=== PATIENT | female | born 1950 | race Hispanic/Latino ===

== ENCOUNTER 2020-07-26 12:17 | Emergency (ER) | payer MEDICARE ==
[~2020-07-26] VITALS: Ht 160 cm; Wt 92.1 kg
[~2020-07-26 12:17] MED LIST: GLEEVEC100 MG PO; TYLENOL WITH C1 EACH PO; UNK BP MED; [UNRECOGNIZED DRUG - CODE] PO
[2020-07-26 12:51] LABS: BASOPHILS % 0.4 % (0.0-1.0); EOSINOPHILS # (AUTO) 0.1 (0.0-0.4); EOSINOPHILS % 1.8 % (0.0-6.0); HEMOGLOBIN 13.3 g/dL (12.0-16.0); LYMPHOCYTES # (AUTO) 3.1 (1.0-3.2); LYMPHOCYTES % 46.3 % (18.0-39.1); MEAN CORPUSCULAR HEMOGLOBIN 30.6 pg (28-32); MEAN CORPUSCULAR HGB CONC 33.3 g/dL (31-35); MEAN CORPUSCULAR VOLUME 92.2 fL (81-99); MONOCYTES # (AUTO) 0.5 (0.2-0.8); MONOCYTES % 7.2 % (4.4-11.3); NEUTROPHILS % 44.2 % (38.7-80.0); PLATELET COUNT 150 x10e3/uL (140-360); RED BLOOD COUNT 4.34 x10e6/uL (3.6-5.1); RED CELL DISTRIBUTION WIDTH 13.2 % (11.7-14.4)
[2020-07-26 12:55] LABS: INR 0.97; PROTHROMBIN TIME 13.4 seconds (11.9-14.5)
[2020-07-26 13:05] LABS: ALANINE AMINOTRANSFERASE 15 IU/L (0-55); ALBUMIN 3.7 g/dL (3.5-5.0); ALBUMIN/GLOBULIN RATIO 1.1 (0.8-2.0); ALKALINE PHOSPHATASE 118 IU/L (40-150); ANION GAP 16.9 mmol/L (8-16); BLOOD UREA NITROGEN 13 mg/dL (7-26); BUN/CREATININE RATIO 15 (6-25); CALCIUM 8.6 mg/dL (8.4-10.2); CARBON DIOXIDE 18 mmol/L (22-29); CHLORIDE 105 mmol/L (98-107); CREATINE KINASE 67 IU/L (29-168); CREATININE, SERUM 0.89 mg/dL (0.57-1.11); EST GLOMERULAR FILTRATION RATE > 60 ML/MIN (60-); GLUCOSE 269 mg/dL (74-118); POTASSIUM 3.9 mmol/L (3.5-5.1); SODIUM 136 mmol/L (136-145)
--- NOTE | 2020-07-26 13:14 | Diagnostic Imaging Report ---
EXAMINATION: CHEST SINGLE (PORTABLE) INDICATION: Shoulder pain COMPARISON: None FINDINGS: LINES/TUBES:None LUNGS:The lungs are moderately inflated. No focal consolidation or pulmonary edema. PLEURA:No pleural effusion or pneumothorax. MEDIASTINUM:The cardiomediastinal silhouette appears normal in size and shape. BONES/SOFT TISSUES:No acute osseous injury. ABDOMEN:No free air under the diaphragm. IMPRESSION: No focal pneumonia or pulmonary edema. Signed by: Mckenna John MD on 07/26/2020 1:11 PM
--- OUTSIDE RECORDS SUMMARY | 2020-07-26 13:18 | XMS REPORT | Continuity of Care Document ---
Author Author [facility] Organization [facility] Address [address] [place] [address] Phone Unavailable Care Team Providers Care Investment Representative Name Role Phone Kali MUÑOZ PCP Unavailable Adrian LUNDY Attphys Unavailable LYNNETTE LOVE Attphys Unavailable Aniya HELTON Attphys Unavailable Adrian LUNDY Admphys Unavailable Payers Payer Name Policy Type Policy Number Effective Date Expiration Date Laya salgado MEDICARE PART A AND B [id number] 2009 00:00:00 MEDICAID [place] TRADITIONAL STAR NON SSI [id number] 2019 00:00:00 Problems This patient has no known problems. Allergies, Adverse Reactions, Alerts Allergy Name Allergy Type Status Severity Reaction(s) Onset Date Inacti ve Date Treating Clinician Comments Source ibuprofen DA Active U 2019-06-24 00:00:00 [facility] Diphenhydramine Hcl Propensity to adverse reactions Active 2018-06-02 00:00:00 [facility] Ibuprofen Propensity to adverse reactions Active 06-02 00:00:00 [facility] races [facility] Codeine Propensity to adverse reactions Active 2018-05-29 0 0:00:00 [facility] Penicillins Propensity to adverse reactions Active 2017 00:00:00 [facility] Penicillins DA Active [place] 2012-07-03 00:00:00 [facility] codeine DA Active [place] 2012-07-03 00:00:00 [facility] Social History Social Habit Start Date Stop Date Quantity Comments Source Sex Assigned At [facility] Smoking Status Start Date Stop Date Source Never smoker [facility] Medications Ordered Medication Name Filled Medication Name Start Date Stop Da te Current Medication? Ordering Clinician Indication Dosage Frequency Signature (SIG) Comments Components Source bacitracin-polymyxin b (POLYSPORIN) 500-10,000 unit/gram oph thalmic ointment 2018-06-02 10:03:20 Yes every 12 (twelve) hours. [facility] Missing or Non-Formulary Medication 2018-06-02 10:03:20 Yes durezol eye drops . [facility] DULoxetine (CYMBALTA) 60 MG capsule 2018-06-02 10:03:19 Yes 60mg QD Take 60 mg by mouth daily. [facility] sulfamethoxazole-trimethoprim (BACTRIM DS) 800-160 mg per ta blet 2018-06-02 10:03:19 Yes 1{tbl} Q.5D Take 1 tablet by mouth 2 (two ) times daily. [facility] atorvastatin (LIPITOR) 20 MG tablet 2018-06-02 10:03:19 Yes 20mg QD Take 20 mg by mouth daily. [facility] Missing or Non-Formulary Medication 2018-06-02 10:03:19 Yes prolensa eye drops . [facility] Missing or Non-Formulary Medication 2018-06-02 09:57:22 Yes Unknown name of med used to prevent infection after stem cell transplant . [facility] Vital Signs Vital Name Observation Time Observation Value Comments Source WEIGHT 2020-05-27 14:45:00 98.7 kg Procedures This patient has no known procedures. Encounters Start Date/Time End Date/Time Encounter Type Admission Type Attendi [facility] Facility Care Department Encounter ID Source 2020-05-27 15:40:06 Outpatient MALLORY LUNDY MDA [id number] [facility] 2020-08-19 00:00:00 2020-08-19 00:00:00 Outpatient JAVIER LUNDY MDA, MDA [id number] [facility] 2020-08-02 00:00:00 2020-08-02 00:00:00 Outpatient ABDI NICHOLS MDA MDA [id number] [facility] 2020-08-02 00:00:00 2020-08-02 00:00:00 Outpatient JAVIER JENNINGS MDA MDA [id number] [facility] 2020-08-02 00:00:00 2020-08-02 00:00:00 Outpatient ABDI NICHOLS [place] MDA [id number] [place] [facility] 2020-08-02 00:00:00 2020-08-02 00:00:00 Outpatient ABDI NICHOLS MDA MDA [id number] [place] [facility] 2020-08-02 00:00:00 2020-08-02 00:00:00 Outpatient ABDI NICHOLS MDA MDA [id number] [place] [facility] 2020-07-19 00:00:00 2020-07-19 00:00:00 Outpatient ABDI NICHOLS MDA MDA [id number] [facility] 2020-05-27 16:20:55 2020-05-27 23:59:00 Outpatient JAVIER JENNINGS MDA MDA [id number] [facility] 2020-05-27 16:10:00 2020-05-27 16:19:00 Outpatient ABDI NICHOLS MDA MDA [id number] [facility] 2020-05-27 13:24:41 2020-05-27 16:09:00 Outpatient ABDI NICHOLS MDA MDA [id number] [place] [facility] 2020-05-27 14:39:23 2020-05-27 15:56:45 Outpatient EARLINE JENNINGSNCStanislav Jason MDA MDA [id number] [facility] Results Test Description Test Time Test Comments Results Result Comments Source CHEST SINGLE (PORTABLE) 2020-07-26 13:00:00 [place] [address] Patient Name: WENDY BARRY MR #: [id number] : 1950 Age/Sex: 69/F Req #: [id number] Adm Physician: Ordered by: STEVE HELTON MD Report #: [id number] Location: ER Room/Bed: Procedure: [id number] DX/CHEST SINGLE (PORTABLE) Exam Date: 07/26/20 Exam Time: 1240 REPORT STATUS: Signed EXAMINATION: CHEST SINGLE (PORTABLE) INDICATION: Shoulder pain COMPARISON: None FINDINGS: LINES/TUBES:None LUNGS:The lungs are moderately inflated. No focal consolidation or pulmonary edema. PLEURA:No pleural effusion or pn eumothorax. MEDIASTINUM:The cardiomediastinal silhouette appears normal in size and shape. BONES/SOFT TISSUES:No acute osseous injury. ABDOMEN:No free air under the diaphragm. IMPRESSION: No focal pneumonia or pulmonary edema. Signed by: Noah Edwards MD on 07/26/2020 1:11 PM Dictated By: NOAH EDWARDS MD 1311 Transcribed By: KAELYN on 07/26/20 1311 COPY TO: STEVE HELTON MD - CT ABD PELVIS W/O CONT 2019-06-24 13:14:00 N andrew: WENDY BARRY [facility] : 1950 Age/S: 68 / F [address] [facility] Unit #: [id number] Loc: [place] [address] Phys: Amos Lee MD Acct: [id number] Dis Date: Status: REG ER PHONE #: [phone] Exam Date: 06/24/2019 1205 FAX #: [phone] Reason: diffuse abdominal pain EXAMS: CPT CODE: [id number] CT ABD PELVIS W/O CONT 52774 REASON FOR EXAM: diffuse abdominal pain EXAM ORDER DATE: 06/24/2019 11:46 AM Ordering M.D.: Amos Lee MD PROCEDURE: - CT ABD PELVIS W/O CONT noncontrast axial CT images were acquired through the abdomen/pelvis at 5 mm intervals. Sagittal and coronal reformatted images were generated. Automated exposure control was utilized for this reduction. Phases of contrast: None COMPARISON: None FINDINGS: The absence of IV contrast limits sensitivity of this exam for the detection of soft tissue pathology Visualized thorax: Coronary atherosclerosis is present. Lung bases are clear. Hepatobiliary system: Decreased attenuation of the hepatic parenchyma suggest steatosis. There is focal sparing adjacent to the gallbladder fossa. Gallbladder is within normal limits. Pancreas: Normal Spleen: Normal Adrenal glands: Normal Genitourinary system: Prior hysterectomy. There is a 2 mm hyperdensity in the lower pole of the right kidney which may represent a renal stone. No hydronephrosis or hydroureter. Bladder is within normal limits. Left kidney is within normal limits. Gastrointestinal tract and appendix: There is diverticular disease in the sigmoid colon but no evidence of diverticulitis. Appendix is not clearly visualized and may be absent. No inflammatory changes in the right lower quadrant of the abdomen. Otherwise normal. Abdominal vascular structures: Scattered calcified atherosclerotic plaques in the aorta and iliac arteries and mesenteric branches. PAGE 1 Signed Report (CONTINUED) Name: WENDY BARRY [facility] : 1950 Age/S: 68 / F [address] [facility] Unit #: [id number] Loc: [place] [address] Phys: Amos Lee MD Acct: [id number] Dis Date: Status: REG ER PHONE #: [phone] Exam Date: 06/24/2019 1205 FAX #: [phone] Reason: diffuse abdominal pain EXAMS: CPT CODE: [id number] CT ABD PELVIS W/O CONT 22571 <Continued> Peritoneum and retroperitoneum: No free fluid or free air. No omental or mesenteric masses. No abnormal lymph nodes. Musculoskeletal structures and abdominal wall: Degenerative changes are present in the thoracic spine. There is also grade 1 L4-L5 anterolisthesis. IMPRESSION: No acute intra-abdominal process to explain the patient's reported history of diffuse abdominal pain. Punctate hyperdensity in the right kidney may represent a nonobstructing stone. No evidence of perinephric fat stranding to suggest inflammation. Colonic diverticulosis without evidence of diverticulitis. Hepatic steatosis. at 1314 Reported and signed by: Ang Ma MD CC: Amos Lee MD Technologist:ALEKSANDAR GARVIN, RT(R),CT CTDI: DLP: Trnscb Date/Time: 06/24/2019 (3136) [id number] Orig Print D/T: S: 06/24/2019 (5105) PAGE 2 Signed Report TROPONIN-I 2019-06-24 11:52:00 Test Item TROPONIN-I (test code = TROPI) <0.015 ng/mL 0.00-0.056 N BASIC METABOLIC [id number] 11:46:00* Test Item Value Reference Range Interpretation Comments SODIUM (test code = NA) 139 mmol/L 136-145 N POTASSIUM (test code = K) 3.8 mmol/L 3.5-5.1 N CHLORIDE (test code = CL) 102 mmol/L 101-109 N CARBON DIOXIDE (test code = CO2) 25.5 mmol/L 21-32 N ANION GAP (test code = GAP) 15 mmol/L 10-20 N GLUCOSE (test code = GLU) 156 mg/dL 74-106 H BLOOD UREA NITROGEN (test code = BUN) 19 mg/dL 3-21 N GLOMERULAR FILTRATION RATE (test code = GFR) 42 mL/min >=60 Estimated GFR by using Modified MDRD formula.Chronic kidney disease is defined as either kidney damageor GFR <60 mL/min/1.73 m2 for >3 months. CREATININE (test code = CREAT) 1.27 mg/dL 0.55-1.3 N BUN/CREATININE RATIO (test code = BUN/CREA) 15.0 10-20 N CALCIUM (test code = CA) 9.6 mg/dL 8.4-10.2 N HEPATIC FUNCTION [id number] 11:46:00* Test Item Value Reference Range Interpretation Comments TOTAL PROTEIN (test code = PROT) 8.6 g/dL 6.5-8.4 H ALBUMIN (test code = ALB) 3.7 g/dL 3.4-4.8 N GLOBULIN (test code = GLOB) 4.9 G/DL 1-10 N ALBUMIN/GLOBULIN RATIO (test code = A/G) 0.76 RATIO 0.75-1.50 N BILIRUBIN TOTAL (test code = BILT) 0.40 mg/dL 0.0-1.0 N BILIRUBIN DIRECT (test code = BILD) 0.10 mg/dL 0.0-0.30 N SGOT/AST (test code = AST) 26 U/L 6-32 N SGPT/ALT (test code = ALT) 30 U/L 12-78 N N ote: Change in REFERENCE RANGE due to new reagent method. ALKALINE PHOSPHATASE TOTAL (test code = ALKP) 157 U/L 38-126 H [id number] 11:46:00* Test Item Value Reference Range Interpretation Comments LIPASE (test code = LIP) 55 U/L 128-270 L BASIC METABOLIC [id number] 11:41:00* Test Item Value Reference Range Interpretation Comments SODIUM (test code = NA) 139 mmol/L 136-145 N POTASSIUM (test code = K) 3.8 mmol/L 3.5-5.1 N CHLORIDE (test code = CL) 102 mmol/L 101-109 N CARBON DIOXIDE (test code = CO2) 25.5 mmol/L 21-32 N ANION GAP (test code = GAP) 15 mmol/L 10-20 N GLUCOSE (test code = GLU) 156 mg/dL 74-106 H BLOOD UREA NITROGEN (test code = BUN) 19 mg/dL 3-21 N GLOMERULAR FILTRATION RATE (test code = GFR) 42 mL/min >=60 Estimated GFR by using Modified MDRD formula.Chronic kidney disease is defined as either kidney damageor GFR <60 mL/min/1.73 m2 for >3 months. CREATININE (test code = CREAT) 1.27 mg/dL 0.55-1.3 N BUN/CREATININE RATIO (test code = BUN/CREA) 15.0 10-20 N CALCIUM (test code = CA) 9.6 mg/dL 8.4-10.2 N HEPATIC FUNCTION [id number] 11:41:00* Test Item Value Reference Range Interpretation Comments TOTAL PROTEIN (test code = PROT) gram/dL 6.4-8.2 ALBUMIN (test code = ALB) g/dL 3.4-5.0 GLOBULIN (test code = GLOB) g/dL 2.7-4.2 ALBUMIN/GLOBULIN RATIO (test code = A/G) 0.75-1.50 BILIRUBIN TOTAL (test code = BILT) mg/dL 0.2-1.2 BILIRUBIN DIRECT (test code = BILD) mg/dL 0.0-0.20 SGOT/AST (test code = AST) IUnit/L 15-37 SGPT/ALT (test code = ALT) U/L 10-69 ALKALINE PHOSPHATASE TOTAL (test code = ALKP) IUnit/L 45-117 [id number] 11:41:00* Test Item Value Reference Range Interpretation Comments LIPASE (test code = LIP) Unit/L 144-286 URINALYSIS [id number] 11:38:00* Test Item Value Reference Range Interpretation Comments UA COLOR (test code = COLU) YELLOW YELLOW UA APPEARANCE (test code = APPU) CLOUDY CLEAR A UA GLUCOSE DIPSTICK (test code = DGLUU) 50 (Trace) mg/dL NEGATIVE A UA BILIRUBIN DIPSTICK (test code = BILU) 3 mg/dL NEGATIVE A UA KETONE DIPSTICK (test code = KETU) 15 (1+) mg/dL NEGATIVE A UA SPECIFIC GRAVITY (test code = SGU) 1.025 1.001-1.035 UA BLOOD DIPSTICK (test code = GALLITO) 25 (1+) Meng/uL NEGATIVE A UA PH DIPSTICK (test code = GRANT) 5.0 5.0-8.0 UA PROTEIN DIPSTICK (test code = PROU) 100 (2+) mg/dL Neg-15 A UA UROBILINIOGEN DIPSTICK (test code = URO) 4 mg/dL (2+) mg/dL 0.0 -0.2 A UA NITRITE DIPSTICK (test code = JAMES) NEGATIVE NEGATIVE UA LEUKOCYTE ESTERASE DIPSTICK (test code = LEUU) 500 Dez/uL (3+) u L NEGATIVE A UA WBC (test code = WBCU) >100 per HPF 0-5 A UA RBC (test code = RBCU) 0-3 per HPF 0-5 UA EPITHELIAL CELLS (test code = EPIU) MANY per HPF Few UA BACTERIA (test code = BACU) MANY per HPF NONE Urine Source? Clean CatchURINALYSIS [id number] 11:36:00* Test Item Value Reference Range Interpretation Comments UA COLOR (test code = COLU) YELLOW YELLOW UA APPEARANCE (test code = APPU) CLOUDY CLEAR A UA GLUCOSE DIPSTICK (test code = DGLUU) 50 (Trace) mg/dL NEGATIVE A UA BILIRUBIN DIPSTICK (test code = BILU) 3 mg/dL NEGATIVE A UA KETONE DIPSTICK (test code = KETU) 15 (1+) mg/dL NEGATIVE A UA SPECIFIC GRAVITY (test code = SGU) 1.025 1.001-1.035 UA BLOOD DIPSTICK (test code = GALLITO) 25 (1+) Meng/uL NEGATIVE A UA PH DIPSTICK (test code = GRANT) 5.0 5.0-8.0 UA PROTEIN DIPSTICK (test code = PROU) 100 (2+) mg/dL Neg-15 A UA UROBILINIOGEN DIPSTICK (test code = URO) 4 mg/dL (2+) mg/dL 0.0 -0.2 A UA NITRITE DIPSTICK (test code = JAMES) NEGATIVE NEGATIVE UA LEUKOCYTE ESTERASE DIPSTICK (test code = LEUU) 500 Dez/uL (3+) u L NEGATIVE A UA WBC (test code = WBCU) per HPF 0-5 UA RBC (test code = RBCU) per HPF 0-5 UA EPITHELIAL CELLS (test code = EPIU) per HPF Few UA BACTERIA (test code = BACU) per HPF NONE Urine Source? Clean CatchC W/O [id number] 11:35:00* Test Item Value Reference Range Interpretation Comments WHITE BLOOD CELL (test code = WBC) 10.0 K/mm3 4.5-12.5 N RED BLOOD CELL (test code = RBC) 4.73 mill/mm3 3.7-5.2 N HEMOGLOBIN (test code = HGB) 15.0 gram/dL 11.5-15.5 N HEMATOCRIT (test code = HCT) 43.6 % 36.0-46.0 N MEAN CELL VOLUME (test code = MCV) 92.2 fL 80-98 N MEAN CELL HGB (test code = MCH) 31.7 picogram 27.0-33.0 N MEAN CELL HGB CONCETRATION (test code = MCHC) 34.4 gram/dL 33.0-36. 0 N RED CELL DISTRIBUTION WIDTH (test code = RDW) 13.1 % 11.6-16. 2 N RED CELL DISTRIBUTION WIDTH SD (test code = RDW-SD) 44.9 fL 37 .0-51.0 N PLATELET COUNT (test code = PLT) 184 K/mm3 150-450 N MEAN PLATELET VOLUME (test code = MPV) 10.9 fL 6.7-11.0 N
--- OUTSIDE RECORDS SUMMARY | 2020-07-26 13:18 | XMS REPORT | Clinical Summary ---
Author Author LUCINDA Virtual Telephone & TelegraphSaint Alphonsus Regional Medical CenterFreeGameCreditsNorthwest Health Physicians' Specialty HospitalFreeGameCreditsShriners Hospitals for Children Address Unknown Phone Unavailable Care Team Providers Care Ceo & Board Director Name Role Phone PCP Unavailable Allergies Comments Active Allergy Reactions Severity Noted Date [facility] Diphenhydramine Hcl 06/02/2018 Codeine 05/29/2018 Heart races Ibuprofen 06/02/2018 Penicillins 05/29/2018 Medications End Date Status Medication Sig Dispensed Refills Start Date Active Missing or Non-Formulary Unknown name 0 Medication of med used to prevent infection after stem cell transplant . Active DULoxetine (CYMBALTA) 60 Take 60 mg by 0 MG capsule mouth daily. Active sulfamethoxazole-trimetho Take 1 tablet 0 prim (BACTRIM DS) 800-160 by mouth 2 mg per tablet (two) times daily. Active atorvastatin (LIPITOR) 20 Take 20 mg by 0 MG tablet mouth daily. Active Missing or Non-Formulary prolensa eye 0 Medication drops . Active bacitracin-polymyxin b every 12 0 (POLYSPORIN) 500-10,000 (twelve) unit/gram ophthalmic hours. ointment Active Missing or Non-Formulary durezol eye 0 Medication drops . Active Problems Not on file Social History Date Tobacco Use Types Packs/Day Years Used Never Smoker Smokeless Tobacco: Never Used Alcohol Use Drinks/Week oz/Week Comments No Sex Assigned at Date Recorded Not on file Industry Job Start Date Occupation Not on file Not on file Not on file Travel End Travel History Travel Start No recent travel history available. Last Filed Vital Signs Not on file Plan of Treatment Not on file Implants Device Identifier Shelf Expiration Date Model / Serial / L ot Implanted Type Area Manufactur er 09/17/2021 [id number] / [id number] / Iol Acrysof Prudence 6.0 13 20d Ophthalmol Right: Eye ALC ON [id number] - [id number] ogy LAB:SURG Implanted: Qty: 1 on 06/02/2018 by Courtney Garcia MD Results Not on fileafter 07/26/2019 Insurance Payer Benefit Subscriber ID Type Phone Address Plan / Group MEDICARE MEDICARE A xxxxxxxxxx Medicare B MEDICAID MEDICAID xxxxxxxxx Medicaid OF [place]
--- NOTE | 2020-07-26 14:21 | Emergency Department Note ---
History of Present Illnes History of Present Illness Chief Complaint: General Medicine Complaints History of Present Illness This is a 69 year old female LEFT ARM PAIN NO CP NO SOB. AAOX4. WAS WATCHING TV AND ONSET LEFT ARM PAIN. +RADIAL PULSE. CAP REFILL < 2 SECONDS. PT NO NOTED DISTRESS. ENROUTE PT DECIDED RT ARM HURTING NOW FROM HER ARTHRITIS. Historian: Patient, Fiber Optic Splicer/EMS Arrival Mode: [facility] Treatment INTERN BRAND: EKG, Aspirin, See EMS Report Additional Treatment INTERN BRAND: ASA 324MG Forging Die Finisher Required: No Onset (how long ago): hour(s) Location: LEFT UPPER ARM Quality: SHARP PAIN Radiation: Reports non-radiation Severity: moderate Onset quality: sudden Timing of current episode: constant (LASTED 2 MINS) Progression: resolved Chronicity: new Context: Denies recent illness Relieving factors: none Exacerbating factors: none Associated symptoms: Reports denies other symptoms Treatments prior to arrival: none Past Medical/Family History Physician Review I have reviewed the patient's past medical and family history. Any updates have been documented here. Past Medical History Recent Fever: No Clinical Suspicion of Infectio: No New/Unexplained Change in Ment: No Past Medical History: Cancer Other Medical History: LEUKEMIA-REMISSION Past Surgical History: Other Surgery: STEM CELL TRANSPLANT Social History Smoking Cessation: Never Smoker Counseling Performed: No Alcohol Use: None Any Illegal Drug Use: No TB Exposure/Symptoms: No Physically hurt or threatened: No Family History Family history of heart diseas: No Other Any Pre-Existing Lines (PICC,: No Review of Systems Review of Systems Constitutional: Reports no symptoms EENTM: Reports no symptoms Cardiovascular: Reports no symptoms Respiratory: Reports no symptoms Gastrointestinal: Reports no symptoms Genitourinary: Reports no symptoms Musculoskeletal: Reports as per HPI Integumentary: Reports no symptoms Neurological: Reports no symptoms Psychological: Reports no symptoms Endocrine: Reports no symptoms Hematological/Lymphatic: Reports no symptoms Physical Exam Related Data Allergies: Coded Allergies: Penicillins (Verified Allergy, Unknown, 07/26/20) codeine (Verified Allergy, Unknown, 07/26/20) diphenhydramine (Verified Allergy, Unknown, 07/26/20) ibuprofen (Verified Allergy, Unknown, 07/26/20) losartan (Verified Allergy, Unknown, 07/26/20) metformin (Verified Allergy, Unknown, 07/26/20) Triage Vital Signs Vital Signs Date Time Temp Pulse Resp B/P (MAP) Pulse Ox O2 Delivery O2 Flow Rate FiO2 07/26/20 12:21 98.7 88 18 163/103 97 Room Air Vital signs reviewed: Yes Physical Exam CONSTITUTIONAL Constitutional: Present well-developed, Present well-nourished HENT HENT: Present normocephalic, Present atraumatic, Present oropharynx clear/moist, Present nose normal HENT L/R: Present left ext ear normal, Present right ext ear normal EYES Eyes: Reports PERRL, Reports conjunctivae normal NECK Neck: Present ROM normal PULMONARY Pulmonary: Present effort normal, Present breath sounds normal CARDIOVASCULAR Cardiovascular: Present regular rhythm, Present heart sounds normal, Present capillary refill normal, Present normal rate GASTROINTESTINAL Abdominal: Present soft, Present nontender, Present bowel sounds normal GENITOURINARY Genitourinary: Present exam deferred SKIN Skin: Present warm, Present dry MUSCULOSKELETAL Musculoskeletal: Present ROM normal; Absent tenderness, Absent swelling NEUROLOGICAL Neurological: Present alert, Present oriented x 3, Present no gross motor or sensory deficits PSYCHOLOGICAL Psychological: Present mood/affect normal, Present judgement normal Results Laboratory Result Diagram: 07/26/20 1230 07/26/20 1230 Laboratory Laboratory Tests Test 07/26/20 12:30 White Blood Count 6.68 x10e3/uL (4.8-10.8) Red Blood Count 4.34 x10e6/uL (3.6-5.1) Hemoglobin 13.3 g/dL (12.0-16.0) Hematocrit 40.0 % (34.2-44.1) Mean Corpuscular Volume 92.2 fL (81-99) Mean Corpuscular Hemoglobin 30.6 pg (28-32) Mean Corpuscular Hemoglobin Concent 33.3 g/dL (31-35) Red Cell Distribution Width 13.2 % (11.7-14.4) Platelet Count 150 x10e3/uL (140-360) Neutrophils (%) (Auto) 44.2 % (38.7-80.0) Lymphocytes (%) (Auto) 46.3 % (18.0-39.1) Monocytes (%) (Auto) 7.2 % (4.4-11.3) Eosinophils (%) (Auto) 1.8 % (0.0-6.0) Basophils (%) (Auto) 0.4 % (0.0-1.0) Neutrophils # (Auto) 3.0 (2.1-6.9) Lymphocytes # (Auto) 3.1 (1.0-3.2) Monocytes # (Auto) 0.5 (0.2-0.8) Eosinophils # (Auto) 0.1 (0.0-0.4) Basophils # (Auto) 0.0 (0.0-0.1) Absolute Immature Granulocyte (auto 0.01 x10e3/uL (0-0.1) Prothrombin Time 13.4 seconds (11.9-14.5) Prothromb Time International Ratio 0.97 Activated Partial Thromboplast Time 25.0 seconds (23.8-35.5) Sodium Level 136 mmol/L (136-145) Potassium Level 3.9 mmol/L (3.5-5.1) Chloride Level 105 mmol/L (98-107) Carbon Dioxide Level 18 mmol/L (22-29) Anion Gap 16.9 mmol/L (8-16) Blood Urea Nitrogen 13 mg/dL (7-26) Creatinine 0.89 mg/dL (0.57-1.11) Estimat Glomerular Filtration Rate > 60 ML/MIN (60-) BUN/Creatinine Ratio 15 (6-25) Glucose Level 269 mg/dL (74-118) Calcium Level 8.6 mg/dL (8.4-10.2) Total Bilirubin 0.4 mg/dL (0.2-1.2) Aspartate Amino Transf (AST/SGOT) 15 IU/L (5-34) Alanine Aminotransferase (ALT/SGPT) 15 IU/L (0-55) Alkaline Phosphatase 118 IU/L (40-150) Creatine Kinase 67 IU/L (29-168) Creatine Kinase MB 1.00 ng/mL (0-5.0) Troponin I < 0.001 ng/mL (0-0.300) B-Type Natriuretic Peptide 22.6 pg/mL (0-100) Total Protein 7.2 g/dL (6.5-8.1) Albumin 3.7 g/dL (3.5-5.0) Globulin 3.5 g/dL (2.3-3.5) Albumin/Globulin Ratio 1.1 (0.8-2.0) Lab results reviewed: Yes Imaging Imaging results reviewed: Yes Procedures 12 Lead ECG Interpretation ECG Interpretation : ECG: ECG 1 Forging Die Finisher: Interpreted by ED physician Date: Jul 26, 2020 Time: 12:28 Rhythm: sinus rhythm Rate: normal (76) QRS axis: left ST segments normal: Yes T waves normal: Yes Additional Comments POOR RWP Assessment & Plan Medical Decision Making MDM LEFT ARM PAIN, MULTIPLE CARDIAC RF'S BUT VERY ATYPICAL PAIN, ONLY UPPER ARM, NO CP - CBC, CHEM, ECG, CARDIACS, CXR - R/O STEMI, NSTEMI, ELECTROLYTE ABNL, NON- CARDIAC CAUSES OF CP Reassessment Reassessment DC HOME, F/U PCP Assessment & Plan Final Impression: (1) Arm pain, left Depart Disposition: HOME, SELF-CARE Last Vital Signs Date Time Temp Pulse Resp B/P (MAP) Pulse Ox O2 Delivery O2 Flow Rate FiO2 07/26/20 12:39 98.2 94 18 120/92 100 Room Air Home Meds Active Scripts [Phenazopyridine Hcl] 100 MG TAB No Conflict Check, 100 MG PO PC, #30 Prov:QUINTEN LAWRENCE MD 02/25/15 Reported Medications Acetaminophen With Codeine (TYLENOL WITH CODEINE #3 TABLET) 1 Each Tablet, 300 MG PO Q5MIN PRN for PAIN, #30 TAB 02/25/15 [Unk Bp Med] No Conflict Check 02/06/15 Imatinib Mesylate (GLEEVEC) 100 Mg Tablet, 300 MG PO DAILY 02/06/15 STEVE HELTON MD Jul 26, 2020 14:21
== END 2020-07-26 14:32 | disposition home or self-care (01) ==
LOC: ER 13:16
DX: M79.622 Pain in left upper arm (principal); C95.91 Leukemia, unspecified, in remission; Z94.84 Stem cells transplant status
CPT/HCPCS: 36415; 71045; 80053; 82550; 82553; 83880; 84484; 85025; 85610; 85730; 93005; 99284

== ENCOUNTER → 2021-11-21 | Outpatient (CLI) | payer MEDICARE | LOC: MAMMO 09:30 | PROVIDERS: ATTEND Internal Medicine | DX: Z12.31 Encounter for screening mammogram for malignant neoplasm of breast (principal) | CPT/HCPCS: 77067 ==

== ENCOUNTER → 2022-08-08 | Outpatient (CLI) | payer MEDICARE | LOC: RAD 12:27 | PROVIDERS: ATTEND Internal Medicine | DX: M15.9 Polyosteoarthritis, unspecified (principal); J45.41 Moderate persistent asthma with (acute) exacerbation | CPT/HCPCS: 71046 ==

== ENCOUNTER 2022-11-20 11:25 | Outpatient (RCR) | payer MEDICARE | END 2022-12-18 | LOC: PT 11:25 | PROVIDERS: ATTEND Internal Medicine | DX: R42 Dizziness and giddiness (principal); Z91.81 History of falling; R53.81 Other malaise ==

== ENCOUNTER → 2022-12-25 | Outpatient (CLI) | payer MEDICARE | LOC: MAMMO 10:15 | PROVIDERS: ATTEND Internal Medicine | DX: Z12.31 Encounter for screening mammogram for malignant neoplasm of breast (principal) | CPT/HCPCS: 77067 ==

== ENCOUNTER → 2023-02-04 | Outpatient (CLI) | payer MEDICARE | LOC: MRI 09:35 | PROVIDERS: ATTEND Internal Medicine | DX: I67.1 Cerebral aneurysm, nonruptured (principal) | CPT/HCPCS: 70551 ==

== ENCOUNTER 2023-09-07 03:36 | Observation (INO) | payer MEDICARE ==
[2023-09-07] VITALS (9 sets, daily range): BP systolic 120–158; BP diastolic 68–86; PULSE 66–79; RESP 15–20; TEMP 97.9–98.8; O2SAT 95–100
[~2023-09-07] VITALS: Ht 160 cm; Wt 92.1 kg
[2023-09-07] MEDS ORDERED: MECLIZINE HCL 12.5 MG TAB PO STA (03:47)
[2023-09-07] MEDS ORDERED: ALBUTEROL/IPRATROPIUM 3 ML NEB NEB STA (03:47)
[2023-09-07] MEDS ORDERED: FAMOTIDINE 20 MG/2 ML VIAL IV STA (04:00)
[2023-09-07] MEDS ORDERED: ONDANSETRON HCL INJ 2MG/ML 2ML 2 MG/ML VIAL IV STA (04:00)
[2023-09-07] MEDS ORDERED: ONDANSETRON HCL INJ 2MG/ML 2ML 2 MG/ML VIAL ONE (04:01)
[2023-09-07 04:03] LABS: BASOPHILS % 0.4 % (0.0-1.0); EOSINOPHILS # (AUTO) 0.2 (0.0-0.4); HEMOGLOBIN 13.1 g/dL (12.0-16.0); LYMPHOCYTES # (AUTO) 4.3 (1.0-3.2); LYMPHOCYTES % 46.7 % (18.0-39.1); MEAN CORPUSCULAR HEMOGLOBIN 30.6 pg (28-32); MEAN CORPUSCULAR HGB CONC 34.5 g/dL (31-35); MEAN CORPUSCULAR VOLUME 88.8 fL (81-99); MONOCYTES # (AUTO) 0.8 (0.2-0.8); MONOCYTES % 8.8 % (4.4-11.3); NEUTROPHILS # (AUTO) 3.9 (2.1-6.9); NEUTROPHILS % 41.9 % (38.7-80.0); PLATELET COUNT 142 x10e3/uL (140-360); RED BLOOD COUNT 4.28 x10e6/uL (3.6-5.1); RED CELL DISTRIBUTION WIDTH 13.6 % (11.7-14.4); WHITE BLOOD COUNT 9.21 x10e3/uL (4.8-10.8)
[2023-09-07] MEDS ORDERED: SODIUM CHLORIDE 0.9% 1000ML 1,000 ML ONE (04:06)
[2023-09-07 04:09] LABS: CLARITY,URINE CLOUDY (CLEAR); COLOR,URINE YELLOW (YELLOW); KETONES,URINE NEGATIVE (NEGATIVE); LEUKOCYTE ESTERASE ,URINE LARGE (NEGATIVE); NITRITE,URINE NEGATIVE (NEGATIVE); PROTEIN,URINE DIPSTICK NEGATIVE (NEGATIVE); URINE UROBILINOGEN 0.2 mg/dL (0.2 - 1)
[2023-09-07 04:11] LABS: BACTERIA,URINE MANY /HPF; EPITHELIAL CELLS,URINE MODERATE /LPF; WBC,URINE (MAN) >50 /HPF (0-5)
[2023-09-07 04:20] LABS: ALBUMIN 3.5 g/dL (3.5-5.0); ALBUMIN/GLOBULIN RATIO 0.9 (0.8-2.0); ANION GAP 13.6 mmol/L (8-16); CALCIUM 9.4 mg/dL (8.4-10.2); CREATININE, SERUM 0.99 mg/dL (0.57-1.11); POTASSIUM 3.6 mmol/L (3.5-5.1)
[2023-09-07 04:31] LABS: CREATINE KINASE 108 IU/L (29-168)
[2023-09-07] MEDS: CIPROFLOXACIN 400 MG/D5W 200ML 200 ML IV SCH ×2 (04:57→17:04)
[2023-09-07] MEDS ORDERED: DEXTROSE 50% SYRINGE 50 ML IV PRN (06:00)
[2023-09-07] MEDS ORDERED: ONDANSETRON HCL INJ 2MG/ML 2ML 2 MG/ML VIAL IV PRN (06:00)
[2023-09-07] MEDS ORDERED: SODIUM CHLORIDE FLUSH 10 ML SYR INJ PRN (06:00)
[2023-09-07] MEDS ORDERED: IOPAMIDOL 370 MG/ML 100 ML INFUS..BTL INJ ONE (06:46)
[2023-09-07] MEDS ORDERED: SODIUM CHLORIDE 0.9% 100 ML ONE (06:46)
[2023-09-07] MEDS ORDERED: METOPROLOL TARTRATE INJ 1 MG/ML VIAL IV PRN (08:00)
[2023-09-07] MEDS ORDERED: SIMETHICONE 80 MG CHEW PO PRN (08:00)
[2023-09-07] MEDS ORDERED: ACETAMINOPHEN 325 MG TAB PO PRN (08:00)
[2023-09-07] MEDS ORDERED: ACETAMINOPHEN/CODEINE 300MG - 30MG TAB PO PRN (08:00)
[2023-09-07] MEDS ORDERED: DOCUSATE SODIUM 100 MG CAP PO PRN (08:00)
[2023-09-07 08:19] LABS: CHOL/HDL RATIO 4.5 (3.0-3.6)
[2023-09-07] MEDS: INSULIN REGULAR, HUMAN 100 UNIT/1 ML SQ SCH ×4 (09:22→21:37)
[2023-09-07] MEDS: IMATINIB MESYLATE 300 MG PO SCH (10:30)
[2023-09-07 10:59] LABS: CREATINE KINASE 86 IU/L (29-168)
[2023-09-07] MEDS ORDERED: CLONAZEPAM0.5 MG PO (11:17)
[2023-09-07] MEDS ORDERED: ZETIA10 MG PO (11:17)
[2023-09-07] MEDS ORDERED: FARXIGA5 MG PO (11:17)
[2023-09-07] MEDS ORDERED: ULTRAM 50MG50 MG PO (11:17)
[2023-09-07] MEDS ORDERED: ALBUTEROL1.25 MG/3 NEB (11:17)
[2023-09-07] MEDS ORDERED: LEVOTHYROXINE75 MCG PO (11:17)
[2023-09-07] MEDS ORDERED: ALLERGY RELIEF10 M4 PO (11:17)
[2023-09-07] MEDS ORDERED: ATORVASTATIN CA20 MG PO (11:17)
[2023-09-07] MEDS ORDERED: LOSARTAN POTASS25 MG PO (11:17)
[2023-09-07] MEDS ORDERED: NAMENDA10 MG PO (11:17)
[2023-09-07] MEDS ORDERED: CILOSTAZOL100 MG PO (11:17)
[2023-09-07] MEDS ORDERED: TRELEGY ELLIPT1 EACH IH (11:17)
[2023-09-07] MEDS ORDERED: OMEPRAZOLE40 MG PO (11:17)
[2023-09-07] MEDS ORDERED: METFORMIN HCL500 M2 PO (11:17)
[2023-09-07] MEDS ORDERED: PROVENTIL HFA6.7 GM INH (11:17)
[2023-09-07] MEDS ORDERED: RYBELSUS3 MG PO (11:17)
[2023-09-07] MEDS ORDERED: MELOXICAM7.5 MG PO (11:17)
[2023-09-07] MEDS ORDERED: DONEPEZIL HCL10 MG PO (11:17)
[2023-09-07] MEDS ORDERED: CYMBALTA30 MG (11:17)
[2023-09-07] MEDS ORDERED: CLONAZEPAM 0.5 MG TAB PO PRN (16:00)
[2023-09-07] MEDS ORDERED: ALBUTEROL/IPRATROPIUM 3 ML NEB NEB PRN (16:00)
[2023-09-07] MEDS: MEMANTINE 10 MG TAB PO SCH (17:05)
[2023-09-07] MEDS: FAMOTIDINE 20 MG TAB PO SCH (17:05)
[2023-09-07] MEDS: CILOSTAZOL 100 MG TAB PO SCH (17:05)
[2023-09-07] MEDS ORDERED: DONEPEZIL HCL 5 MG TAB PO SCH (21:00)
[2023-09-07] MEDS ORDERED: ATORVASTATIN 20 MG TAB PO SCH (21:00)
[2023-09-08] VITALS (7 sets, daily range): BP systolic 110–126; BP diastolic 65–72; PULSE 70–86; RESP 16–20; TEMP 98.1–98.8; O2SAT 95–98
[2023-09-08] MEDS: CIPROFLOXACIN 400 MG/D5W 200ML 200 ML IV SCH (05:57)
[2023-09-08] MEDS ORDERED: LEVOTHYROXINE SODIUM 75 MCG TAB PO SCH (06:00)
[2023-09-08 06:33] LABS: BASOPHILS # (AUTO) 0.1 (0.0-0.1); BASOPHILS % 0.7 % (0.0-1.0); EOSINOPHILS # (AUTO) 0.2 (0.0-0.4); EOSINOPHILS % 2.7 % (0.0-6.0); HEMATOCRIT 34.6 % (34.2-44.1); HEMOGLOBIN 11.8 g/dL (12.0-16.0); LYMPHOCYTES # (AUTO) 3.6 (1.0-3.2); LYMPHOCYTES % 47.6 % (18.0-39.1); MEAN CORPUSCULAR HEMOGLOBIN 30.6 pg (28-32); MEAN CORPUSCULAR HGB CONC 34.1 g/dL (31-35); MEAN CORPUSCULAR VOLUME 89.9 fL (81-99); MONOCYTES # (AUTO) 0.7 (0.2-0.8); MONOCYTES % 9.2 % (4.4-11.3); NEUTROPHILS % 39.7 % (38.7-80.0); PLATELET COUNT 125 x10e3/uL (140-360); RED BLOOD COUNT 3.85 x10e6/uL (3.6-5.1); RED CELL DISTRIBUTION WIDTH 13.9 % (11.7-14.4); WHITE BLOOD COUNT 7.54 x10e3/uL (4.8-10.8)
[2023-09-08 07:04] LABS: ALBUMIN 2.8 g/dL (3.5-5.0); ALBUMIN/GLOBULIN RATIO 0.8 (0.8-2.0); ANION GAP 11.8 mmol/L (8-16); CREATININE, SERUM 1.07 mg/dL (0.57-1.11); POTASSIUM 3.8 mmol/L (3.5-5.1)
[2023-09-08] MEDS: MEMANTINE 10 MG TAB PO SCH (08:09)
[2023-09-08] MEDS: FAMOTIDINE 20 MG TAB PO SCH (08:09)
[2023-09-08] MEDS: CILOSTAZOL 100 MG TAB PO SCH (08:10)
[2023-09-08] MEDS: IMATINIB MESYLATE 300 MG PO SCH (08:10)
[2023-09-08] MEDS: INSULIN REGULAR, HUMAN 100 UNIT/1 ML SQ SCH (08:11)
[2023-09-08] MEDS ORDERED: DULOXETINE HCL 30 MG DELAYED RELEASE PO SCH (09:00)
[2023-09-08] MEDS ORDERED: EZETIMIBE 10 MG TAB PO SCH (09:00)
[2023-09-08] MEDS ORDERED: FAMOTIDINE20 MG PO (11:02)
[2023-09-08] MEDS ORDERED: CIPRO500 MG PO (11:02)
[2023-09-08] MEDS ORDERED: ONDANSETRON ODT4 MG PO (11:02)
== END 2023-09-08 11:52 | disposition home or self-care (01) ==
LOC: ER 03:42 → ERHOLD 05:46 → MED/SURG3 08:09
PROVIDERS: ADMIT Internal Medicine; ATTEND Internal Medicine
DX: N39.0 Urinary tract infection, site not specified (principal); E11.65 Type 2 diabetes mellitus with hyperglycemia; Z79.84 Long term (current) use of oral hypoglycemic drugs; R11.2 Nausea with vomiting, unspecified; E66.9 Obesity, unspecified; Z68.36 Body mass index [BMI] 36.0-36.9, adult; Z79.899 Other long term (current) drug therapy; F03.90 Unspecified dementia, unspecified severity, without behavioral disturbance, psychotic disturbance, mood disturbance, and anxiety; C95.91 Leukemia, unspecified, in remission; Z11.52 Encounter for screening for COVID-19; Z94.84 Stem cells transplant status; Z88.5 Allergy status to narcotic agent; Z88.0 Allergy status to penicillin; Z88.8 Allergy status to other drugs, medicaments and biological substances
CPT/HCPCS: 36415 ×2; 70496; 70498; 71045; 74177; 80053 ×2; 80061; 81001; 82550; 82948 ×2; 83036; 83690; 83880; 84484; 85025 ×2; 87086; 87186; 93005; 94640; 94799 ×2; 99285; G0378 ×2; J0744; J2405 ×2; J7030; J7050; J8597; Q9967; U0002

== ENCOUNTER 2024-06-19 16:32 | Emergency (ER) | payer MEDICARE ==
[~2024-06-19] VITALS: Ht 160 cm; Wt 92.1 kg
[~2024-06-19 16:32] MED LIST changes: +ALBUTEROL1.25 MG/3 NEB; +ALLERGY RELIEF10 M4 PO; +ATORVASTATIN CA20 MG PO; +CILOSTAZOL100 MG PO; +CIPRO500 MG PO; +CLONAZEPAM0.5 MG PO; +CYMBALTA30 MG; +DONEPEZIL HCL10 MG PO; +FAMOTIDINE20 MG PO; +FARXIGA5 MG PO; +LEVOTHYROXINE75 MCG PO; +LOSARTAN POTASS25 MG PO; +MELOXICAM7.5 MG PO; +METFORMIN HCL500 M2 PO; +NAMENDA10 MG PO; +OMEPRAZOLE40 MG PO; +ONDANSETRON ODT4 MG PO; +PROVENTIL HFA6.7 GM INH; +RYBELSUS3 MG PO; +TRELEGY ELLIPT1 EACH IH; +ULTRAM 50MG50 MG PO; +ZETIA10 MG PO
[2024-06-19 16:43] VITALS: PULSE 64; RESP 13; TEMP 97.7; O2SAT 99
== END 2024-06-19 19:11 | disposition home or self-care (01) ==
LOC: ER 16:40
DX: R42 Dizziness and giddiness (principal); I10 Essential (primary) hypertension; E11.9 Type 2 diabetes mellitus without complications; E78.5 Hyperlipidemia, unspecified; J45.909 Unspecified asthma, uncomplicated; C95.91 Leukemia, unspecified, in remission
CPT/HCPCS: 93005; 99284

== ENCOUNTER 2024-12-28 15:23 | Inpatient (IN) | payer MEDICARE ==
[~2024-12-28] VITALS: Ht 154.9 cm; Wt 80.7 kg
[2024-12-28 16:21] LABS: BASOPHILS # (AUTO) 0.1 (0.0-0.1); BASOPHILS % 0.5 % (0.0-1.0); EOSINOPHILS # (AUTO) 0.1 (0.0-0.4); EOSINOPHILS % 1.2 % (0.0-6.0); HEMATOCRIT 42.3 % (34.2-44.1); HEMOGLOBIN 14.4 g/dL (12.0-16.0); LYMPHOCYTES # (AUTO) 4.3 (1.0-3.2); LYMPHOCYTES % 37.6 % (18.0-39.1); MEAN CORPUSCULAR HEMOGLOBIN 31.5 pg (28-32); MEAN CORPUSCULAR VOLUME 92.6 fL (81-99); MONOCYTES # (AUTO) 1.2 (0.2-0.8); MONOCYTES % 10.3 % (4.4-11.3); NEUTROPHILS # (AUTO) 5.7 (2.1-6.9); NEUTROPHILS % 50.2 % (38.7-80.0); PLATELET COUNT 161 x10e3/uL (140-360); RED BLOOD COUNT 4.57 x10e6/uL (3.6-5.1); RED CELL DISTRIBUTION WIDTH 13.2 % (11.7-14.4); WHITE BLOOD COUNT 11.37 x10e3/uL (4.8-10.8)
[2024-12-28 16:32] LABS: ALBUMIN 3.4 g/dL (3.5-5.0); ALBUMIN/GLOBULIN RATIO 0.8 (0.8-2.0); ANION GAP 14.8 mmol/L (8-16); BILIRUBIN,TOTAL 0.4 mg/dL (0.2-1.2); CALCIUM 10.5 mg/dL (8.4-10.2); CREATININE, SERUM 0.79 mg/dL (0.57-1.11); POTASSIUM 3.8 mmol/L (3.5-5.1); TOTAL PROTEIN 7.8 g/dL (6.5-8.1)
[2024-12-28 17:17] LABS: CLARITY,URINE HAZY (CLEAR); COLOR,URINE YELLOW (YELLOW); LEUKOCYTE ESTERASE ,URINE SMALL (NEGATIVE); PH,URINE 6 (5 - 7)
[2024-12-28 17:18] LABS: BILIRUBIN,URINE NEGATIVE (NEGATIVE); GLUCOSE, URINE NEGATIVE (NEGATIVE); KETONES,URINE TRACE (NEGATIVE); NITRITE,URINE NEGATIVE (NEGATIVE); PROTEIN,URINE DIPSTICK TRACE (NEGATIVE); URINE UROBILINOGEN 0.2 mg/dL (0.2 - 1)
[2024-12-28] MEDS ORDERED: IOPAMIDOL 370 MG/ML 100 ML INFUS..BTL INJ ONE (17:22)
[2024-12-28 17:23] LABS: BACTERIA,URINE MODERATE /HPF; EPITHELIAL CELLS,URINE MANY /LPF; RBC,URINE 0-5 /HPF (0-5); WBC,URINE (MAN) >50 /HPF (0-5)
[2024-12-28] MEDS: SODIUM CHLORIDE 0.9% 1000ML 1,000 ML IV STA (17:57)
[2024-12-28] MEDS: DEXTROSE 50% SYRINGE 50 ML IV STA (17:57)
[2024-12-28 18:38] LABS: CREATINE KINASE 38 IU/L (29-168); LIPASE 14 U/L (8-78)
[2024-12-28 18:45] VITALS: PULSE 66; RESP 17; TEMP 97.9
[2024-12-28 18:45] LABS: TROPONIN I < 0.001 ng/mL (0-0.300)
[2024-12-28] MEDS ORDERED: Morphine 4mg INJECTION 4 MG/ML INJ IV PRN (20:00)
[2024-12-28] MEDS ORDERED: ONDANSETRON HCL INJ 2MG/ML 2ML 2 MG/ML VIAL IV PRN (20:00)
[2024-12-28] MEDS ORDERED: GLUCAGON FOR INJ 1 MG VIAL IV PRN (20:30)
[2024-12-28 21:00] VITALS: BP 121/70; PULSE 69; RESP 18; TEMP 98.2; O2SAT 94
[2024-12-29] VITALS: BP 134/63; PULSE 65; RESP 18; TEMP 97.6; O2SAT 97
[2024-12-29] MEDS: SODIUM CHLORIDE 0.9% 1000ML 1,000 ML IV SCH (00:36)
[2024-12-29] MEDS: DEXTROSE 50% SYRINGE 50 ML IV PRN (03:37)
[2024-12-29 05:31] LABS: BASOPHILS # (AUTO) 0.1 (0.0-0.1); BASOPHILS % 0.6 % (0.0-1.0); EOSINOPHILS # (AUTO) 0.1 (0.0-0.4); EOSINOPHILS % 1.6 % (0.0-6.0); HEMATOCRIT 41.4 % (34.2-44.1); HEMOGLOBIN 13.5 g/dL (12.0-16.0); LYMPHOCYTES # (AUTO) 3.5 (1.0-3.2); LYMPHOCYTES % 40.4 % (18.0-39.1); MEAN CORPUSCULAR HEMOGLOBIN 31.6 pg (28-32); MEAN CORPUSCULAR HGB CONC 32.6 g/dL (31-35); MONOCYTES # (AUTO) 0.8 (0.2-0.8); MONOCYTES % 9.1 % (4.4-11.3); NEUTROPHILS # (AUTO) 4.2 (2.1-6.9); NEUTROPHILS % 48.1 % (38.7-80.0); PLATELET COUNT 151 x10e3/uL (140-360); RED BLOOD COUNT 4.27 x10e6/uL (3.6-5.1); RED CELL DISTRIBUTION WIDTH 13.2 % (11.7-14.4); WHITE BLOOD COUNT 8.68 x10e3/uL (4.8-10.8)
[2024-12-29 05:57] LABS: ALBUMIN 3.1 g/dL (3.5-5.0); ALBUMIN/GLOBULIN RATIO 0.8 (0.8-2.0); ANION GAP 11.2 mmol/L (8-16); BILIRUBIN,TOTAL 0.4 mg/dL (0.2-1.2); CALCIUM 9.1 mg/dL (8.4-10.2); CREATININE, SERUM 0.73 mg/dL (0.57-1.11); POTASSIUM 4.2 mmol/L (3.5-5.1); TOTAL PROTEIN 6.9 g/dL (6.5-8.1)
[2024-12-29 06:23] LABS: TROPONIN I 0.004 ng/mL (0-0.300)
[2024-12-29] MEDS ORDERED: GLIMEPIRIDE2 MG PO (06:52)
[2024-12-29] MEDS ORDERED: METOPROLOL TART25 MG PO (06:52)
[2024-12-29] MEDS ORDERED: MECLIZINE HCL12.5 MG PO (06:52)
[2024-12-29] MEDS ORDERED: RYBELSUS7 MG PO (06:52)
[2024-12-29] MEDS ORDERED: ALENDRONATE SOD70 MG PO (07:09)
[2024-12-29 08:00] VITALS: BP 131/61; PULSE 68; RESP 18; TEMP 98.2; O2SAT 100
[2024-12-29 09:08] VITALS: BP 131/61; PULSE 68; RESP 18; TEMP 98.2; O2SAT 100
[2024-12-29 12:20] VITALS: BP 125/70; PULSE 69; RESP 20; TEMP 98; O2SAT 98
[2024-12-29] MEDS ORDERED: DEXTROSE 50% SYRINGE 50 ML IV PRN (12:30)
[2024-12-29] MEDS ORDERED: ALBUTEROL 90 MCG/ACT INHALER INH PRN (12:30)
[2024-12-29] MEDS ORDERED: CLONAZEPAM 0.5 MG TAB PO PRN (12:30)
[2024-12-29] MEDS ORDERED: ONDANSETRON HCL 4 MG ORAL DISINTEGRATING TAB PO PRN (12:30)
[2024-12-29] MEDS ORDERED: MECLIZINE HCL 12.5 MG TAB PO PRN (12:30)
[2024-12-29] MEDS ORDERED: TRAMADOL HCL 50 MG TAB PO PRN (12:30)
[2024-12-29] MEDS ORDERED: ACETAMINOPHEN/CODEINE 300MG - 30MG TAB PO PRN (12:30)
[2024-12-29] MEDS ORDERED: METOCLOPRAM5 MG/5 ML PO (13:12)
[2024-12-29] MEDS ORDERED: FAMOTIDINE20 MG PO (13:12)
[2024-12-29] MEDS ORDERED: INSULIN REGULAR, HUMAN 100 UNIT/1 ML SQ SCH (16:30)
[2024-12-29] MEDS ORDERED: FAMOTIDINE 20 MG TAB PO SCH (16:30)
[2024-12-29] MEDS ORDERED: CILOSTAZOL 100 MG TAB PO SCH (17:00)
[2024-12-29] MEDS ORDERED: MEMANTINE 10 MG TAB PO SCH (17:00)
[2024-12-29] MEDS ORDERED: METOPROLOL TARTRATE 25 MG TAB PO SCH (17:00)
[2024-12-29] MEDS ORDERED: ATORVASTATIN 20 MG TAB PO SCH (21:00)
[2024-12-30] MEDS ORDERED: LEVOTHYROXINE SODIUM 75 MCG TAB PO SCH (06:00)
[2024-12-30] MEDS ORDERED: DULOXETINE HCL 30 MG DELAYED RELEASE PO SCH (09:00)
[2024-12-30] MEDS ORDERED: LOSARTAN POTASSIUM 25 MG TAB PO SCH (09:00)
[2024-12-30] MEDS ORDERED: EZETIMIBE 10 MG TAB PO SCH (09:00)
== END 2024-12-29 14:08 | disposition home or self-care (01) | DRG 638 ==
LOC: ER 16:08 → ERHOLD 20:01 → MED/SURG 20:31
PROVIDERS: ADMIT Internal Medicine; ATTEND Internal Medicine
DX: E11.649 Type 2 diabetes mellitus with hypoglycemia without coma (principal); C92.10 Chronic myeloid leukemia, BCR/ABL-positive, not having achieved remission; K21.9 Gastro-esophageal reflux disease without esophagitis; I10 Essential (primary) hypertension; R53.81 Other malaise; J45.909 Unspecified asthma, uncomplicated; F32.A Depression, unspecified; F41.9 Anxiety disorder, unspecified; T38.3X5A Adverse effect of insulin and oral hypoglycemic [antidiabetic] drugs, initial encounter; Z79.84 Long term (current) use of oral hypoglycemic drugs; Z79.51 Long term (current) use of inhaled steroids; Z79.890 Hormone replacement therapy; Z90.710 Acquired absence of both cervix and uterus; Z88.5 Allergy status to narcotic agent; Z88.0 Allergy status to penicillin; Z88.6 Allergy status to analgesic agent
CPT/HCPCS: 36415; 70450; 74177; 80053; 81001; 82550; 82948; 83690; 84484; 85025; 93005; 99285; J7030; J7799; Q9967